=== PATIENT | female | born 1980 | race Caucasian/White ===

== ENCOUNTER 2019-10-07 13:32 | Emergency (ER) | payer BC, MEDICAID ==
[~2019-10-07] VITALS: Ht 152.4 cm; Wt 56.7 kg
[2019-10-07 14:03] VITALS: Ht 152.4 cm; Wt 56.7 kg
[2019-10-07 16:41] VITALS: BP 105/71
== END 2019-10-07 16:41 | disposition home or self-care (01) ==
LOC: ED 13:32
DX: K80.70 Calculus of gallbladder and bile duct without cholecystitis without obstruction (principal)

== ENCOUNTER 2020-06-06 09:59 | Emergency (ER) | payer BC, MEDICAID ==
[~2020-06-06] VITALS: Ht 152.4 cm; Wt 52.2 kg
[2020-06-06 11:05] LABS: BASOPHIL % 0.9 % (0-2); PLATELET COUNT 258 x10^3mcL (130-400); RED CELL DISTRIBUTION WIDTH 13.5 % (11.5-14.5)
[2020-06-06 11:20] LABS: microscopic required? NO
[2020-06-06 11:23] LABS: CALCIUM 8.7 mg/dL (8.5-10.1); CARBON DIOXIDE 28.4 mmol/L (21-32); CHLORIDE SERUM 104 mmol/L (98-107); CREATININE SERUM 0.4 mg/dL (0.6-1.0); GFR1 > 60 mL/min; GLUCOSE SERUM 89 mg/dL (74-106); POTASSIUM SERUM 3.3 mmol/L (3.5-5.1); SODIUM SERUM 139 mmol/L (136-145)
[2020-06-06 11:28] LABS: ALKALINE PHOSPHATASE 69 U/L (46-116); ALT/SGPT 18 U/L (14-59); AST/SGOT 9 U/L (15-37); BILIRUBIN TOTAL 0.82 mg/dL (0.20-1.00); TOTAL PROTEIN, SERUM 7.2 g/dL (6.4-8.2)
[2020-06-06 11:29] LABS: ALBUMIN 3.3 g/dL (3.4-5.0)
[2020-06-06 11:32] LABS: urine erythrocyte NEGATIVE (NEGATIVE)
[2020-06-06 15:26] VITALS: BP 110/70
== END 2020-06-06 15:26 | disposition home or self-care (01) ==
LOC: ED 09:59
PROVIDERS: Emergency Medicine
DX: N83.201 Unspecified ovarian cyst, right side (principal); Z98.890 Other specified postprocedural states; Z98.51 Tubal ligation status
CPT/HCPCS: 87491; 87591; J0696; J1885; J2405